=== PATIENT | female | born 1990 | race Caucasian/White ===

== ENCOUNTER 2021-05-27 13:41 | Day surgery (SDC) | payer OTHER ==
--- NOTE | 2021-05-27 18:35 | XRAY ---
Indication: Bilateral SI joint injection. Intraoperative fluoroscopy provided for 21 seconds. 4 digital spot image submitted for interpretation demonstrates posterior needle tip projecting over the inferior left and right SI joint. Correlate with intraoperative findings/report.
--- NOTE | 2021-05-28 09:36 | XRAY ---
21 seconds fluoroscopy time in surgery for injections of both SI joints.
== END 2021-05-27 17:40 | disposition home or self-care (01) ==
LOC: SDC-PAIN 13:41
PROVIDERS: ATTEND Psychiatry & Neurology Pain Medicine
DX: M46.1 Sacroiliitis, not elsewhere classified (principal); Z79.899 Other long term (current) drug therapy
CPT/HCPCS: 72202; 77002